=== PATIENT | female | born 1990 | race Caucasian/White ===

== ENCOUNTER 2017-04-23 15:19 | Emergency (ER) | payer OTHER ==
[~2017-04-23] VITALS: Ht 162.6 cm; Wt 116.1 kg
== END 2017-04-23 17:30 | disposition short-term general hospital (02) ==
LOC: ER 15:19 → ULTR 15:20 → ER 15:20
DX: R10.2 Pelvic and perineal pain (principal); F41.0 Panic disorder [episodic paroxysmal anxiety]; F32.9 Major depressive disorder, single episode, unspecified; Z88.1 Allergy status to other antibiotic agents; Z79.899 Other long term (current) drug therapy
CPT/HCPCS: J1885

== ENCOUNTER → 2017-05-18 | Outpatient (CLI) | payer OTHER | END | disposition short-term general hospital (02) | LOC: CLOBGYN 02:23 | DX: N93.9 Abnormal uterine and vaginal bleeding, unspecified (principal); R10.2 Pelvic and perineal pain; N94.6 Dysmenorrhea, unspecified; N97.0 Female infertility associated with anovulation ==